=== PATIENT | male | born 1975 | race Caucasian/White ===

== ENCOUNTER → 2018-01-13 | Outpatient (CLI) | payer BC ==
--- NOTE | 2018-01-13 21:10 | CONS ---
CONSULTATION DATE OF SERVICE: 01/13/2018 REASON FOR CONSULTATION: Sleep apnea. FAMILY PHYSICIAN: Dr. Mohsen Zuniga. HISTORY OF PRESENT ILLNESS: This patient was referred to me for sleep apnea evaluation. He has been noted to have loud snoring and he quits breathing at nighttime as reported by his . 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 During the day he feels tired and fatigued yet he has never fallen asleep while on the job nor has he fallen asleep while driving his car. He has been fluctuating in his weight and he has gained a few pounds over the past 1 year. He is a type 1 diabetic. He is well controlled with an insulin pump. No restlessness in lower extremities. No sleepwalking or sleep talking. No other parasomnias noted. He goes to bed around 10:00 p.m., wakes up 5:45 am in the morning. On weekends he goes to bed at 11:00 p.m., wakes up at 8:00 am in the morning. He does not feel that he is well rested. He feels to him that he sleeps only 4 hours. PAST MEDICAL HISTORY: Diabetes mellitus. PAST SURGICAL HISTORY: Negative. DRUG ALLERGIES: Not known. OUTPATIENT MEDICATION: Include insulin pump, Enalapril 2.5 mg p.o. daily and Pravachol 40 mg p.o. daily. SOCIAL HISTORY: Nonsmoker. No history of alcohol. No history of IV drugs. FAMILY HISTORY: Negative for sleep apnea. REVIEW OF SYSTEMS: 12-point review of system was done. Positive findings are mentioned above in history of present illness. PHYSICAL EXAMINATION: BP is 133/82, pulse 60, respirations 16, temperature 97.7. Saturation is 99% on room air. Weight is 209. Height is 5 feet 5 inches and neck size 15-3/4 of an inch. BMI 34.7. General appearance: Appears calm, comfortable. Head is atraumatic, normocephalic. NECK: Supple. There is no JVD. No goiter or neck masses. Mallampati Class 1. LUNGS: Clear to auscultation. HEART: Sounds regular rate and rhythm. Normal S1, S2. No S3. No murmurs. ABDOMEN: Soft, nontender. No organomegaly. EXTREMITIES: No edema. No cyanosis or clubbing. NEUROLOGIC: Alert and oriented x3. No focal neurological deficits. PSYCHIATRIC: Negative for anxiety or depression. IMPRESSION: 1. Obstructive sleep apnea clinically suspected, under investigation. 2. Insufficient sleep suspected knowing that the patient sleeps 9 hours over the weekend and he sleeps way less than that during the regular weekdays. 3. Diabetes mellitus type 1. PLAN: 1. Encourage to extend sleep hours to an average of 8-9 hours even during weekdays. 2. Weight loss. 3. Screening polysomnogram to rule out obstructive sleep apnea and treat accordingly. MMODL / IJN: [id number] /
== END | disposition home or self-care (01) ==
LOC: SLEEP 15:55
PROVIDERS: ATTEND Internal Medicine Critical Care Medicine
DX: R06.83 Snoring (principal); E10.9 Type 1 diabetes mellitus without complications; Z79.4 Long term (current) use of insulin; Z79.899 Other long term (current) drug therapy
CPT/HCPCS: 99211

== ENCOUNTER → 2018-04-28 | Outpatient (CLI) | payer BC, OTHER ==
--- NOTE | 2018-04-28 18:14 | PN ---
PROGRESS NOTE This is a 43-year-old male patient diagnosed having obstructive sleep apnea, mild in severity, with an AHI of 15. The patient was given APAP and today he is coming in for a compliancy check. The patient reports marked improvement in sleep quality. He is waking up refreshed. He has energy throughout the day and he does not fall asleep at all. Based on the compliance data over the past 30 days, the patient has been averaging around 7.8 hours of CPAP use per night. His CPAP use for more than 4 hours is of 100% of the time. His average CPAP pressure used is 11 cm of water. His leak is 1 L/minute and his AHI is down to 1.6. He is utilizing a medium-sized AirFit F20 full- face mask. Weight has been stable. No other complaints otherwise. REVIEW OF SYSTEMS: Twelve-point review of systems was done. Positive findings were all mentioned above in the history of present illness. No hypersomnia or sleepiness. No falling asleep while driving. Energy level has improved. No heartburn, shortness of breath or chest pain at night time. No nocturia. PHYSICAL EXAMINATION: BP is 123/78, pulse 59, respirations 16, temperature 98.4, saturation 99% on room air. Weight is 212. GENERAL APPEARANCE: Calm, comfortable. Head is atraumatic, normocephalic. NECK: Supple. No JVD. No goiter or neck masses. LUNGS: Diminished breath sounds; otherwise clear. Heart sounds are regular rate and rhythm. Normal S1, S2. No S3, S4. No murmurs. ABDOMEN: Soft, nontender. No organomegaly. EXTREMITIES: No edema. No cyanosis or clubbing. NEUROLOGIC: Alert and oriented x3. No focal neurological deficits. PSYCHIATRIC: Negative for anxiety or depression. IMPRESSION: 1. Obstructive sleep apnea with an apnea/hypopnea index of 15. The patient reports marked improvement in sleep quality and resolution of the symptoms of hypersomnia and sleepiness. 2. Insufficient sleep syndrome, improved. 3. Type 1 diabetes mellitus. PLAN: Continue APAP therapy. The patient is compliant. Compliance data was checked. No need for any further adjustments. Keep the AirFit F20 full-face mask. See me back in followup in a year's time. Treatment for now is absolutely successful. MMODL / IJN: [id number] /
== END ==
LOC: SLEEP 15:40
PROVIDERS: ATTEND Internal Medicine Critical Care Medicine
DX: G47.33 Obstructive sleep apnea (adult) (pediatric) (principal); E10.8 Type 1 diabetes mellitus with unspecified complications; Z99.89 Dependence on other enabling machines and devices

== ENCOUNTER 2018-10-28 08:46 | Emergency (ER) | payer BC, OTHER ==
[2018-10-28 08:53] VITALS: PULSE 72
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
[2018-10-28 09:57] VITALS: BP 141/81; RESP 16; TEMP 97.9
== END 2018-10-28 09:50 | disposition home or self-care (01) ==
LOC: EC 08:46
DX: S63.502A Unspecified sprain of left wrist, initial encounter (principal); E11.9 Type 2 diabetes mellitus without complications; E78.5 Hyperlipidemia, unspecified; I10 Essential (primary) hypertension; Z79.4 Long term (current) use of insulin; Z79.899 Other long term (current) drug therapy; V49.9XXA Car occupant (driver) (passenger) injured in unspecified traffic accident, initial encounter; Y92.410 Unspecified street and highway as the place of occurrence of the external cause
CPT/HCPCS: 99284

== ENCOUNTER → 2020-08-29 | Outpatient (CLI) | payer BC, OTHER ==
--- NOTE | 2020-08-29 17:26 | PN ---
PROGRESS NOTE Alfonso is doing extremely well while on CPAP therapy. Note that he has a case of mild LAM with an AHI of 15 and currently is on APAP pressure minimum of 5, maximum of 20. The patient has gained only 3 pounds over the past 2 years. He has been averaging about 7.8 hours of CPAP use per night with a leak of 5 L/minute and his AHI is down to 1. No hypersomnia or sleepiness during the day. He is able to function well. His pressure delivery to the machine on average has been around 9.3 cm of water. He is using AirFit F20 full-face mask. No angina. No palpitations. No atrial fibrillation. No heartburn. No other complaints. REVIEW OF SYSTEMS: Fourteen-point review of system was done positive findings are mentioned in history of present illness. He is diabetic with adequate blood sugar control with insulin pump. PHYSICAL EXAMINATION: VITAL SIGNS: BP is 123/77, pulse 61, respirations 16, temperature 97.7. Saturation 97% on room air. Height is 5 feet 5 inches, weight is 215. [place] score is 4. BMI 35. GENERAL APPEARANCE: Calm, comfortable. HEAD is atraumatic, normocephalic. NECK: Supple. No JVD. No goiter or neck masses. LUNGS: Diminished, otherwise clear. HEART: Heart sounds are regular rate and rhythm. Normal S1, S2. No S3, S4. No murmurs. ABDOMEN: Soft, nontender. No organomegaly. EXTREMITIES: No edema, no cyanosis or clubbing. NEUROLOGIC: Awake and alert. There is no focal neurological deficit. IMPRESSION: 1. Obstructive sleep apnea, adequately treated with an APAP machine. Baseline AHI of 15 and the patient is currently utilizing APAP mode, pressure minimum of 5, maximum of 15 with a full-face mask AirFit F20. 2. Hypersomnia, recovered. 3. Diabetes mellitus type 2. 4. Hypertension. 5. Hyperlipidemia. PLAN: 1. Continue same treatment plan. 2. No need for any adjustments on the CPAP unit. Keep the same mask interface. See me back in 2 years time in followup, treatment is successful. MMODL / IJN: [id number] /
== END ==
LOC: SLEEP 15:51
PROVIDERS: ATTEND Internal Medicine Critical Care Medicine
DX: G47.33 Obstructive sleep apnea (adult) (pediatric) (principal); E11.9 Type 2 diabetes mellitus without complications; E78.5 Hyperlipidemia, unspecified; I10 Essential (primary) hypertension; Z99.81 Dependence on supplemental oxygen

== ENCOUNTER → 2022-02-05 | Outpatient (CLI) | payer OTHER ==
--- NOTE | 2022-02-05 10:00 | XR ---
EXAMINATION TYPE: XR knee complete LT DATE OF EXAM: 02/05/2022 9:56 AM INDICATION: Patient age:Male; 46 years old; Reason for study: S83.92XA; [facility]. COMPARISON: None. TECHNIQUE: The Left knee(s) was examined in 3 projections. Frontal, lateral and oblique. FINDINGS: No acute fracture or dislocation. No joint space narrowing. No soft tissue swelling. Smal l suprapatellar joint effusion. IMPRESSION: 1. No acute osseous pathology. 2. Small suprapatellar joint effusion.
== END | disposition home or self-care (01) ==
LOC: RADXRMAIN 09:31
PROVIDERS: ATTEND Emergency Medicine
DX: S83.92XA Sprain of unspecified site of left knee, initial encounter (principal); M25.462 Effusion, left knee

== ENCOUNTER → 2022-02-14 | Outpatient (CLI) | payer OTHER ==
--- NOTE | 2022-02-14 22:45 | MR ---
EXAMINATION TYPE: MR knee LT wo con DATE OF EXAM: 02/14/2022 COMPARISON: Left knee x-rays February 05, 2022 HISTORY: Left knee pain, swelling, and locking since 02-04-22. TECHNIQUE: Multiplanar, multisequence images of the knee is performed without IV contrast. FINDINGS: MEDIAL MENISCUS: Anterior and posterior horns are intact without tear. LATERAL MENISCUS: Anterior and posterior horns are intact without tear. CRUCIATE LIGAMENTS: The anterior and posterior cruciate ligaments are intact and unremarkable. COLLATERAL LIGAMENTS: The medial collateral ligament and lateral collateral ligament complex are inta ct and unremarkable. EXTENSOR MECHANISM: Visualized quadriceps and patellar tendons are intact. EFFUSION: No significant suprapatellar joint effusion. POPLITEAL CYST: Small to tiny size popliteal/woods cyst. TRICOMPARTMENT SPACES: Tricompartmental joint spaces are preserved. No significant spurring is seen. CARTILAGE: Tricompartmental articular cartilage is maintained. BONE MARROW SIGNAL: No focal abnormal marrow signal is appreciated. OTHER: No additional significant abnormality is appreciated. IMPRESSION: No meniscal or ligamentous tear is seen. Small to tiny popliteal cyst is noted.
== END | disposition home or self-care (01) ==
LOC: RADMRIMAIN 15:40
PROVIDERS: ATTEND Emergency Medicine
DX: S83.92XD Sprain of unspecified site of left knee, subsequent encounter (principal); M71.22 Synovial cyst of popliteal space [Baker], left knee